=== PATIENT | female | born 1955 ===

== ENCOUNTER 2017-11-13 11:03 | Day surgery (SDC) | payer OTHER ==
[2017-11-06 13:56] VITALS: BMI 34.5
[2017-11-13] MEDS ORDERED: Propofol 10 mg/ml Inj (20 ML) ONE (14:19)
[2017-11-13] MEDS ORDERED: ceFAZolin IV 1 gm in Dextrose 1 GM/50 ML BAG IVPB ONE (14:34)
[2017-11-13] MEDS ORDERED: Bupivacaine 0.25% 20 ML INJ IJ ONE (14:49)
[2017-11-13] MEDS ORDERED: Lactated Ringer's 1,000 ML IV SCH (15:00)
[2017-11-13] MEDS ORDERED: Oxycodone/Acetaminophen 5/325 mg Tab PO PRN (15:01)
[2017-11-13 16:05] VITALS: TEMP 97.4
[2017-11-13 16:37] VITALS: BP 119/77; PULSE 65; RESP 16; O2SAT 98
--- NOTE | 2017-11-14 02:28 | OP ---
Copied To: Jayson Alas MD Attending MD: Jayson Alas MD PROCEDURE DATE: 11/13/2017 PREOPERATIVE DIAGNOSIS: Soft tissue mass on the right leg. POSTOPERATIVE DIAGNOSIS: Soft tissue mass on the right leg. PROCEDURE PERFORMED: Excision of soft tissue mass in the right leg. SURGEON: Jayson Alas MD ANESTHESIA: General. BLOOD LOSS: 20 mL. POSTOP CONDITION: Stable. INDICATIONS FOR SURGERY: This is a 62-year-old female with a painful soft tissue mass on the right leg and ankle area, who will now undergo wide deep excision. DESCRIPTION OF PROCEDURE: The patient was taken to the operating room, general anesthesia administered. The right lower extremity was prepped and draped. A generous elliptical incision was made and the mass was excised. The mass was excised into the fascial layer. The bleeding was controlled using Bovie. A larger venous blood vessel was repaired. The wound was irrigated with saline and generous tissue flaps were raised and adjacent tissue transfer closure was performed with multiple layers of subcuticular Monocryl and skin clips. The patient tolerated the procedure well, and returned to recovery in stable condition. Jayson Alas MD
== END 2017-11-13 16:36 | disposition home or self-care (01) ==
LOC: C.SDS 11:03
PROVIDERS: ATTEND Surgery
DX: D17.24 Benign lipomatous neoplasm of skin and subcutaneous tissue of left leg (principal)
CPT/HCPCS: 11402; 88307; J0690; J2001; J2704; J3010

== ENCOUNTER 2018-04-25 09:26 | Outpatient (CLI) | payer OTHER, SELFPAY | END 2018-04-25 09:27 | disposition home or self-care (01) | LOC: C.VASC 09:26 | DX: I87.2 Venous insufficiency (chronic) (peripheral) (principal) ==